=== PATIENT | male | born 1995 | race Caucasian/White ===

== ENCOUNTER 2017-02-09 21:19 | Emergency (ER) | payer OTHER ==
[~2017-02-09] VITALS: Ht 182.9 cm; Wt 84.7 kg
[2017-02-09 22:09] LABS: ADD MIUA? NO; BILIRUBIN NEGATIVE; BLOOD NEGATIVE; COLOR YELLOW ((YELLOW)); GLUCOSE (STRIP) NEGATIVE; KETONES NEGATIVE; LEUKOCYTES NEGATIVE; NITRITE NEGATIVE; PROTEIN (STRIP) NEGATIVE; SPECIFIC GRAVITY 1.019 (1.000-1.030); UCUL ADDED? NO; UROBILINOGEN 0.2 MG/DL (0.2-1.0)
[2017-02-09 22:16] LABS: HEMATOCRIT 47.1 % (38.0-50.0); MCH 28.1 PG (29.0-34.0); MCHC 32.1 G/DL (30.0-36.0); MCV 87.5 FL (86-99); MEAN PLAT.VOLUME 10.9 uM^3 (9.0-12.4); PLATELET COUNT 156 K/uL (156-360); RBC DIS.WIDTH-CV 12.9 % (11.8-14.6); RBC DIS.WIDTH-SD 41.2 % (39-53); RED BLOOD COUNT 5.38 M/uL (4.00-5.50); WHITE BLOOD COUNT 8.8 K/uL (4.1-10.2)
[2017-02-09 22:27] LABS: CHLORIDE 105 mEq/L (99-109); POTASSIUM 4.4 mEq/L (3.7-5.4); SODIUM 139 mEq/L (136-147)
[2017-02-09 22:29] LABS: GLUCOSE 99 mg/dL (70-99)
[2017-02-09 22:30] LABS: ANION GAP 9 MEQ/L (2-14)
[2017-02-09 22:31] LABS: TOTAL BILIRUBIN 0.4 mg/dL (0.0-1.0)
[2017-02-09 22:32] LABS: ALKALINE PHOSPHATASE 109 IU/L (3-129)
[2017-02-09 22:33] LABS: GFR ESTIMATE (CALCULATED) > 59 mL/min/
[2017-02-09 22:34] LABS: UREA NITROGEN (BUN) 22 mg/dL (9-23)
[2017-02-09] MEDS ORDERED: LEVAQUIN750 MG PO (22:44)
[2017-02-09 22:56] VITALS: BP 137/84
== END 2017-02-09 23:02 | disposition home or self-care (01) ==
LOC: EME 21:19
DX: N41.0 Acute prostatitis (principal); R30.0 Dysuria
CPT/HCPCS: 80053; 81003; 85027; 99281; 99284